=== PATIENT | female | born 1965 | race Asian ===

== ENCOUNTER 2017-11-16 09:20 | Outpatient (CLI) | payer BC | END 2017-11-16 22:41 | disposition home or self-care (01) | LOC: MAMMO 09:20 | DX: Z12.31 Encounter for screening mammogram for malignant neoplasm of breast (principal) ==

== ENCOUNTER → 2018-03-29 13:47 | Outpatient (CLI) | payer OTHER | END | disposition home or self-care (01) | LOC: AMB 13:47 | DX: Z04.3 Encounter for examination and observation following other accident (principal) ==

== ENCOUNTER 2018-05-19 06:57 | Emergency (ER) | payer OTHER ==
[~2018-05-19] VITALS: Ht 157.5 cm; Wt 100.2 kg
[2018-05-19 08:40] LABS: PLATELET COUNT 240 K/uL (152-353)
[2018-05-19 08:47] LABS: POTASSIUM 4.1 mmol/L (3.6-5.2); SODIUM 138 mmol/L (136-145)
[2018-05-19 13:33] VITALS: BP 136/93; TEMP 97.7
== END 2018-05-19 13:33 | disposition home or self-care (01) ==
LOC: ED 06:57
PROVIDERS: Family Medicine
DX: R10.84 Generalized abdominal pain (principal); K29.60 Other gastritis without bleeding; R25.2 Cramp and spasm; R00.0 Tachycardia, unspecified
CPT/HCPCS: 36415; 74022; 80053; 81000; 82150; 82550; 82553; 83605; 83690; 84484; 85027; 92977; 93005; 99283; J1885

== ENCOUNTER 2020-05-19 09:14 | Outpatient (CLI) | payer OTHER | END 2020-05-19 19:32 | disposition home or self-care (01) | LOC: MAMMO 09:14 | PROVIDERS: ATTEND Nurse Practitioner Family | DX: I10 Essential (primary) hypertension (principal); E78.5 Hyperlipidemia, unspecified; E66.01 Morbid (severe) obesity due to excess calories; R73.03 Prediabetes; Z79.899 Other long term (current) drug therapy; M19.90 Unspecified osteoarthritis, unspecified site; Z12.31 Encounter for screening mammogram for malignant neoplasm of breast ==

== ENCOUNTER 2020-06-18 09:07 | Outpatient (CLI) | payer OTHER | END 2020-06-18 21:46 | disposition home or self-care (01) | LOC: MAMMO 09:07 | PROVIDERS: ATTEND Nurse Practitioner Family | DX: N64.89 Other specified disorders of breast (principal); R92.8 Other abnormal and inconclusive findings on diagnostic imaging of breast ==

== ENCOUNTER 2020-08-13 15:27 | Outpatient (CLI) | payer OTHER | END 2020-08-13 22:21 | disposition home or self-care (01) | LOC: RAD 15:27 | PROVIDERS: ATTEND Nurse Practitioner Family | DX: E78.5 Hyperlipidemia, unspecified (principal); M54.9 Dorsalgia, unspecified; I10 Essential (primary) hypertension; R73.03 Prediabetes; E66.01 Morbid (severe) obesity due to excess calories ==

== ENCOUNTER 2021-08-02 10:07 | Outpatient (CLI) | payer OTHER | END 2021-08-02 18:57 | disposition home or self-care (01) | LOC: MAMMO 10:07 | PROVIDERS: ATTEND Nurse Practitioner Family | DX: Z12.31 Encounter for screening mammogram for malignant neoplasm of breast (principal) ==